=== PATIENT | female | born 1960 ===

== ENCOUNTER 2018-03-22 14:26 | Inpatient (IN) ==
[2018-03-22] MEDS ORDERED: SODIUM CHLORIDE 0.9% 2,000 ML IV ONE (17:53)
[2018-03-22] MEDS ORDERED: DEXTROSE 50% 25 GM/50 ML VIAL IV PRN (17:54)
[2018-03-22] MEDS ORDERED: ZALEPLON 5 MG CAPSULE PO PRN (17:54)
[2018-03-22] MEDS ORDERED: GLUCAGON 1 MG VIAL IM PRN (17:54)
[2018-03-22] MEDS ORDERED: ONDANSETRON 4 MG/2 ML VIAL IV PRN (17:54)
[2018-03-22] MEDS ORDERED: ACETAMINOPHEN 325 MG TABLET PO PRN (17:54)
[2018-03-22] MEDS ORDERED: INSULIN NPH 100 UNIT/ML SUBCUT SCH (18:00)
[2018-03-22] MEDS ORDERED: LEVOFLOXACIN INJ 750 MG in PREMIX 1 EACH IV SCH (19:30)
[2018-03-22 20:03] LABS: Blood Urea Nitrogen 19 MG/DL (7-18); Calcium 8.9 MG/DL (8.5-10.1); Glucose 118 MG/DL (74-106); Osmolality,Calculated 277.7 MOS/KG (273-304); Potassium 3.2 MMOL/L (3.5-5.1); Sodium 138 MMOL/L (136-145)
[2018-03-22] MEDS: ENOXAPARIN 40 MG/0.4 ML SYRINGE SUBCUT SCH (20:31)
[2018-03-22] MEDS: INSULIN LISPRO 100 UNIT/ML SUBCUT SCH (20:33)
[2018-03-22] MEDS: metroNIDAZOLE INJ 500 MG in PREMIX 1 EACH IV SCH (20:41)
[2018-03-22] MEDS: SODIUM BICARB INJ 50 MEQ in SODIUM CHLORIDE 0.45% 1,000 ML IV SCH (23:41)
[2018-03-23] MEDS: INSULIN LISPRO 100 UNIT/ML SUBCUT SCH ×6 (00:40→20:36)
[2018-03-23] MEDS: metroNIDAZOLE INJ 500 MG in PREMIX 1 EACH IV SCH ×2 (03:36→08:35)
[2018-03-23] MEDS: SODIUM BICARB INJ 50 MEQ in SODIUM CHLORIDE 0.45% 1,000 ML IV SCH ×2 (06:03→14:58)
[2018-03-23 07:20] LABS: Basophils % 0.4 % (0.0-0.8); Eosinophils # 0.1 10*3/uL (0.0-0.87); Eosinophils % 0.9 % (0.00-10.9); Hematocrit 31.9 VOL% (35.7-47.0); Hemoglobin 11.1 GM/DL (12.0-16.0); Immature Granulocytes % 0.3 %; Immature Granulocytes Absolute 0.02 #; Lymphocytes # 2.5 10*3/uL (1.4-4.0); Lymphocytes % 37.4 % (21.3-54.2); Mean Corpuscular HGB Conc 34.8 GM/DL (32-36); Mean Corpuscular Hemoglobin 29 PG (27-34); Mean Corpuscular Volume 84.4 FL (87-102); Mean Platelet Volume 10.4 FL (9.6-12.0); Monocytes # 0.6 10*3/uL (0.11-0.8); Monocytes % 8.8 % (1.7-12.7); Neutrophils # 3.5 10*3/uL (1.4-7.4); Neutrophils % 52.2 % (38.7-73.9); Platelet Count 259 T/CUMM (130-400); Red Blood Count 3.78 MC/CUMM (3.8-5.5); Red Cell Distribution Width 12.1 % (9.3-17.3); White Blood Count 6.7 T/CUMM (4-12)
[2018-03-23 07:55] LABS: Blood Urea Nitrogen 11 MG/DL (7-18); Calcium 7.7 MG/DL (8.5-10.1); Glucose 167 MG/DL (74-106); Osmolality,Calculated 281.4 MOS/KG (273-304); Sodium 140 MMOL/L (136-145)
[2018-03-23] MEDS: INSULIN NPH 100 UNIT/ML SUBCUT SCH ×2 (08:33→17:23)
[2018-03-23] MEDS: CLOPIDOGREL 75 MG TABLET PO SCH (08:35)
[2018-03-23] MEDS ORDERED: PANTOPRAZOLE 40 MG TABLET PO SCH (09:00)
[2018-03-23 09:28] LABS: Apearance,Urine CLEAR (Clear); Bilirubin,Urine Negative (Negative); Blood, Urine Negative (Negative); Glucose,Urine (UA) >=500 mg/dL (Negative); Ketones,Urine Negative (Negative); Nitrite,Urine Negative (Negative); Protein,Urine Negative; RBC,Urine <1 /HPF (0-4); Squamous Epithelial Cell,Urine Occasional /HPF (0-10); Urine Color Straw (Yellow); Urine Specific Gravity 1.006 (1.001-1.035); Urine Urobilinogen < 2.0 EU/DL (0.2-1.0); WBC,Urine 1 /HPF (0-6)
[2018-03-23] MEDS ORDERED: MAGNESIUM SULF RIDER 2 GM in PREMIX 1 EACH IV PRN (09:37)
[2018-03-23] MEDS ORDERED: MAGNESIUM SULF RIDER 4 GM in PREMIX 1 EACH IV PRN (09:37)
[2018-03-23] MEDS ORDERED: CALCIUM GLUCONATE 1,000 MG in SODIUM CHLORIDE 0.9% 100 ML IV ONE (10:00)
[2018-03-23] MEDS ORDERED: POTASSIUM CHLORIDE 20 MEQ TABLET PO ONE (14:11)
[2018-03-23] MEDS: SODIUM CHLORIDE 0.45% 1,000 ML IV SCH (15:12)
[2018-03-23] MEDS: ENOXAPARIN 40 MG/0.4 ML SYRINGE SUBCUT SCH (20:37)
[2018-03-24] MEDS: INSULIN LISPRO 100 UNIT/ML SUBCUT SCH ×3 (00:41→08:15)
[2018-03-24 05:17] LABS: Basophils % 0.5 % (0.0-0.8); Eosinophils # 0.1 10*3/uL (0.0-0.87); Eosinophils % 1.5 % (0.00-10.9); Hematocrit 33.5 VOL% (35.7-47.0); Hemoglobin 11.7 GM/DL (12.0-16.0); Immature Granulocytes % 0.3 %; Immature Granulocytes Absolute 0.02 #; Lymphocytes % 32.6 % (21.3-54.2); Mean Corpuscular HGB Conc 34.9 GM/DL (32-36); Mean Corpuscular Hemoglobin 29 PG (27-34); Mean Corpuscular Volume 82.7 FL (87-102); Mean Platelet Volume 10.5 FL (9.6-12.0); Monocytes # 0.6 10*3/uL (0.11-0.8); Monocytes % 9.1 % (1.7-12.7); Neutrophils # 3.4 10*3/uL (1.4-7.4); Platelet Count 271 T/CUMM (130-400); Red Blood Count 4.05 MC/CUMM (3.8-5.5); Red Cell Distribution Width 12.1 % (9.3-17.3); White Blood Count 6.1 T/CUMM (4-12)
[2018-03-24] MEDS: SODIUM CHLORIDE 0.45% 1,000 ML IV SCH ×2 (05:47→06:08)
[2018-03-24 05:48] LABS: Calcium 8.3 MG/DL (8.5-10.1); Osmolality,Calculated 281.3 MOS/KG (273-304); Potassium 3.1 MMOL/L (3.5-5.1)
[2018-03-24] MEDS ORDERED: POTASSIUM CHLORIDE 20 MEQ TABLET PO ONE (07:13)
[2018-03-24 07:22] VITALS: BP 114/66
[2018-03-24] MEDS ORDERED: metFORMIN 500 MG TABLET PO SCH (08:00)
[2018-03-24] MEDS: CLOPIDOGREL 75 MG TABLET PO SCH (08:05)
[2018-03-24] MEDS ORDERED: LISINOPRIL 5 MG TABLET PO SCH (09:00)
[2018-03-24] MEDS ORDERED: INSULIN GLARGINE 100 UNIT/ML SUBCUT SCH (09:00)
[2018-03-24] MEDS ORDERED: SENNA 8.6 MG TABLET PO SCH (09:00)
[2018-03-24] MEDS ORDERED: OMEGA 3 ACID ETHYL ESTERS 1 GM CAPSULE PO SCH (09:00)
[2018-03-24] MEDS ORDERED: MAGNESIUM CHLORIDE 64 MG TABLET PO SCH (09:00)
== END 2018-03-24 10:20 | disposition home or self-care (01) | DRG 392 ==
LOC: N.5E 17:02 → SUATTDRO 17:02
PROVIDERS: ADMIT Internal Medicine; ATTEND Hospitalist

== ENCOUNTER 2019-04-23 17:04 | Inpatient (IN) ==
[2019-04-23] MEDS ORDERED: NICOTINE 21 MG/24 HR PATCH TRANSDERM PRN (20:28)
[2019-04-23 20:58] LABS: Basophils # 0.1 10*3/uL (0.0-0.2); Basophils % 0.4 % (0.0-0.8); Eosinophils # 0.1 10*3/uL (0.0-0.87); Eosinophils % 0.7 % (0.00-10.9); Hematocrit 31.7 VOL% (35.7-47.0); Hemoglobin 10.8 GM/DL (12.0-16.0); Immature Granulocytes % 0.5 %; Immature Granulocytes Absolute 0.06 #; Lymphocytes # 2.6 10*3/uL (1.4-4.0); Lymphocytes % 22.1 % (21.3-54.2); Mean Corpuscular HGB Conc 34.1 GM/DL (32-36); Mean Corpuscular Volume 84.8 FL (87-102); Mean Platelet Volume 9.4 FL (9.6-12.0); Monocytes % 7.2 % (1.7-12.7); Neutrophils % 69.1 % (38.7-73.9); Platelet Count 360 T/CUMM (130-400); Red Blood Count 3.74 MC/CUMM (3.8-5.5); Red Cell Distribution Width 12.3 % (9.3-17.3); White Blood Count 11.7 T/CUMM (4-12)
[2019-04-23 21:26] LABS: Troponin I < 0.015 NG/ML (0.00-0.045)
[2019-04-23 21:43] LABS: Alanine Aminotransferase 21 U/L (13-56); Albumin 3.3 G/DL (3.4-5.0); Alkaline Phosphatase 91 U/L (45-117); Aspartate Amino Transferase 17 U/L (0-37); Bilirubin,Total < 0.39 MG/DL (0.2-1.0); Blood Urea Nitrogen 39 MG/DL (7-18); Calcium 7.4 MG/DL (8.5-10.1); Glucose 139 MG/DL (74-106); Total Protein 6.7 G/DL (6.4-8.3)
[2019-04-23] MEDS: SODIUM CHLORIDE 0.9% 1,000 ML IV SCH (21:49)
[2019-04-24 00:12] LABS: Apearance,Urine CLEAR (Clear); Bilirubin,Urine Negative (Negative); Blood, Urine Small mg/dL (Negative); Glucose,Urine (UA) 150 mg/dL (Negative); Hyaline Casts,Urine 5 /LPF (0-3); Ketones,Urine Negative (Negative); Mucus,Urine Occasional /LPF (Occasional); Nitrite,Urine Negative (Negative); Protein,Urine Negative; RBC,Urine 1 /HPF (0-4); Squamous Epithelial Cell,Urine Occasional /HPF (0-10); Urine Color Straw (Yellow); Urine Urobilinogen < 2.0 EU/DL (0.2-1.0); WBC,Urine 2 /HPF (0-6)
[2019-04-24] MEDS: SODIUM CHLORIDE 0.9% 1,000 ML IV SCH ×3 (05:50→19:45)
[2019-04-24] MEDS ORDERED: INSULIN ASPART PROTAMINE/ASPART 70/30 100 UNIT/ML SUBCUT SCH ×2 (08:30→21:00)
[2019-04-24 08:47] LABS: Basophils # 0.1 10*3/uL (0.0-0.2); Basophils % 0.6 % (0.0-0.8); Eosinophils # 0.1 10*3/uL (0.0-0.87); Hematocrit 34.8 VOL% (35.7-47.0); Hemoglobin 11.8 GM/DL (12.0-16.0); Immature Granulocytes % 0.7 %; Immature Granulocytes Absolute 0.06 #; Lymphocytes # 1.9 10*3/uL (1.4-4.0); Lymphocytes % 22.4 % (21.3-54.2); Mean Corpuscular HGB Conc 33.9 GM/DL (32-36); Mean Corpuscular Volume 84.7 FL (87-102); Mean Platelet Volume 9.5 FL (9.6-12.0); Monocytes % 7.4 % (1.7-12.7); Neutrophils % 67.9 % (38.7-73.9); Platelet Count 407 T/CUMM (130-400); Red Blood Count 4.11 MC/CUMM (3.8-5.5); Red Cell Distribution Width 12.3 % (9.3-17.3); White Blood Count 8.7 T/CUMM (4-12)
[2019-04-24 09:18] LABS: Albumin 3.6 G/DL (3.4-5.0); Bilirubin,Total 0.9 MG/DL (0.2-1.0); Calcium 7.8 MG/DL (8.5-10.1); Osmolality,Calculated 285.7 MOS/KG (273-304); Total Protein 7.4 G/DL (6.4-8.3)
[2019-04-24] MEDS: FENOFIBRATE 145 MG TABLET PO SCH (10:20)
[2019-04-24] MEDS ORDERED: POTASSIUM CHLORIDE 20 MEQ TABLET PO ONE (10:48)
[2019-04-24] MEDS ORDERED: MAGNESIUM SULF RIDER 4 GM in PREMIX 1 EACH IV ONE (12:12)
[2019-04-24] MEDS: ONDANSETRON 4 MG/2 ML VIAL IV PRN (13:40)
[2019-04-24] MEDS: INSULIN SUBCUT SCH (20:41)
[2019-04-24] MEDS: NOVOLIN SUBCUT SCH (20:41)
[2019-04-25] MEDS: SODIUM CHLORIDE 0.9% 1,000 ML IV SCH ×3 (03:48→20:05)
[2019-04-25 05:09] LABS: Basophils % 0.7 % (0.0-0.8); Eosinophils # 0.1 10*3/uL (0.0-0.87); Eosinophils % 1.3 % (0.00-10.9); Hematocrit 30.4 VOL% (35.7-47.0); Hemoglobin 10.5 GM/DL (12.0-16.0); Immature Granulocytes % 0.3 %; Immature Granulocytes Absolute 0.02 #; Lymphocytes # 1.9 10*3/uL (1.4-4.0); Lymphocytes % 31.5 % (21.3-54.2); Mean Corpuscular HGB Conc 34.5 GM/DL (32-36); Mean Corpuscular Volume 83.1 FL (87-102); Mean Platelet Volume 9.9 FL (9.6-12.0); Monocytes % 7.8 % (1.7-12.7); Neutrophils % 58.4 % (38.7-73.9); Platelet Count 373 T/CUMM (130-400); Red Blood Count 3.66 MC/CUMM (3.8-5.5); Red Cell Distribution Width 11.9 % (9.3-17.3)
[2019-04-25 05:36] LABS: Calcium 7.8 MG/DL (8.5-10.1); Osmolality,Calculated 288.1 MOS/KG (273-304)
[2019-04-25] MEDS ORDERED: ACETAMINOPHEN 325 MG TABLET PO PRN (08:04)
[2019-04-25] MEDS ORDERED: POTASSIUM CHLORIDE 20 MEQ TABLET PO ONE ×2 (08:05→10:00)
[2019-04-25] MEDS: FENOFIBRATE 145 MG TABLET PO SCH (08:34)
[2019-04-25] MEDS: INSULIN SUBCUT SCH ×2 (09:00→21:11)
[2019-04-25] MEDS: NOVOLIN SUBCUT SCH ×2 (09:00→21:11)
[2019-04-25] MEDS: ONDANSETRON 4 MG/2 ML VIAL IV PRN (09:47)
[2019-04-25] MEDS ORDERED: DOCUSATE SODIUM 100 MG CAPSULE PO PRN (10:35)
[2019-04-25] MEDS ORDERED: PROMETHAZINE 25 MG/1 ML VIAL IM PRN (11:25)
[2019-04-25] MEDS: POTASSIUM CHLORIDE 20 MEQ TABLET PO SCH (21:09)
[2019-04-26] MEDS: SODIUM CHLORIDE 0.9% 1,000 ML IV SCH (04:07)
[2019-04-26 05:20] LABS: Basophils # 0.1 10*3/uL (0.0-0.2); Eosinophils # 0.1 10*3/uL (0.0-0.87); Eosinophils % 2.1 % (0.00-10.9); Hematocrit 29.3 VOL% (35.7-47.0); Hemoglobin 9.9 GM/DL (12.0-16.0); Immature Granulocytes % 0.5 %; Immature Granulocytes Absolute 0.03 #; Lymphocytes # 2.4 10*3/uL (1.4-4.0); Lymphocytes % 37.5 % (21.3-54.2); Mean Corpuscular HGB Conc 33.8 GM/DL (32-36); Mean Corpuscular Volume 85.2 FL (87-102); Mean Platelet Volume 9.9 FL (9.6-12.0); Monocytes % 9.1 % (1.7-12.7); Neutrophils % 49.8 % (38.7-73.9); Platelet Count 361 T/CUMM (130-400); Red Blood Count 3.44 MC/CUMM (3.8-5.5); Red Cell Distribution Width 12.3 % (9.3-17.3); White Blood Count 6.3 T/CUMM (4-12)
[2019-04-26 05:38] LABS: Calcium 7.4 MG/DL (8.5-10.1); Osmolality,Calculated 285.3 MOS/KG (273-304)
[2019-04-26] MEDS: INSULIN SUBCUT SCH (08:56)
[2019-04-26] MEDS: NOVOLIN SUBCUT SCH (08:56)
[2019-04-26] MEDS: POTASSIUM CHLORIDE 20 MEQ TABLET PO SCH (08:58)
[2019-04-26] MEDS: FENOFIBRATE 145 MG TABLET PO SCH (08:58)
[2019-04-26 12:00] VITALS: BP 132/68
== END 2019-04-26 15:53 | disposition home or self-care (01) | DRG 641 ==
LOC: N.3E → SUATTDRO 19:32
PROVIDERS: ADMIT Internal Medicine; ATTEND Internal Medicine